=== PATIENT | female | born 1980 | race Two or more races ===

== ENCOUNTER → 2017-11-07 | Outpatient (CLI) | payer OTHER ==
[~2017-11-07] MED LIST: AMOXIL500 MG PO; BACTROBAN OINT22 GM TP; CEFADROXIL500 MG PO; CORTISPORIN-TC10 ML OT; DOLOGESIC CAPSU1 CAP PO; PEPCID40 MG; SYNTHROID75 MCG; [UNRECOGNIZED DRUG - OTHER] MM
== END | disposition home or self-care (01) ==
LOC: SONOGRAMA 12:38
DX: R22.32 Localized swelling, mass and lump, left upper limb (principal)

== ENCOUNTER → 2018-01-25 | Outpatient (CLI) | payer OTHER | END | disposition home or self-care (01) | LOC: SONOGRAMA 08:02 | DX: R10.11 Right upper quadrant pain (principal) ==

== ENCOUNTER 2018-02-24 09:46 | Outpatient (CLI) | payer OTHER ==
[2018-03-18] MEDS ORDERED: SYNTHROID50 MCG (22:42)
== END 2018-02-24 09:55 | disposition home or self-care (01) ==
LOC: RAD 09:46
DX: M25.562 Pain in left knee (principal); M25.572 Pain in left ankle and joints of left foot

== ENCOUNTER → 2018-03-18 | Emergency (ER) | payer OTHER ==
[~2018-03-18] VITALS: Ht 162.6 cm; Wt 85.7 kg
[~2018-03-18] MED LIST changes: +SYNTHROID50 MCG
== END | disposition left against medical advice (07) ==
LOC: ER 22:19
DX: Z53.20 Procedure and treatment not carried out because of patient's decision for unspecified reasons (principal)

== ENCOUNTER 2019-06-26 14:35 | Outpatient (CLI) | payer OTHER | END 2019-06-26 17:00 | disposition home or self-care (01) | LOC: SONOGRAMA 14:35 | DX: R80.8 Other proteinuria (principal) ==

== ENCOUNTER 2020-03-11 12:29 | Emergency (ER) | payer OTHER ==
[~2020-03-11] VITALS: Ht 162.6 cm; Wt 90.3 kg
[2020-03-11] MEDS ORDERED: CIPRO500 MG PO (15:09)
== END 2020-03-11 16:04 | disposition home or self-care (01) ==
LOC: ER 12:29
DX: N39.0 Urinary tract infection, site not specified (principal)

== ENCOUNTER 2020-06-28 15:05 | Emergency (ER) | payer OTHER ==
[~2020-06-28] VITALS: Ht 162.6 cm; Wt 90.7 kg
[~2020-06-28 15:05] MED LIST changes: +CIPRO500 MG PO
== END 2020-06-28 19:18 | disposition home or self-care (01) ==
LOC: ER 15:05
DX: K80.50 Calculus of bile duct without cholangitis or cholecystitis without obstruction (principal)

== ENCOUNTER 2020-07-22 07:17 | Outpatient (CLI) | payer OTHER | END 2020-07-22 08:30 | disposition home or self-care (01) | LOC: NUCLEAR 07:17 | PROVIDERS: ATTEND General Practice | DX: R11.0 Nausea (principal); R10.9 Unspecified abdominal pain | CPT/HCPCS: 78227; A9537 ==

== ENCOUNTER 2020-08-29 21:31 | Emergency (ER) | payer OTHER ==
[~2020-08-29] VITALS: Ht 162.6 cm; Wt 90.7 kg
[2020-08-30] MEDS ORDERED: RECTICARE30 GM TOP (03:15)
[2020-08-30] MEDS ORDERED: SURFAK240 M1 PO (03:15)
== END 2020-08-30 03:28 | disposition home or self-care (01) ==
LOC: ER 21:31
DX: K64.8 Other hemorrhoids (principal); K62.89 Other specified diseases of anus and rectum; Z03.818 Encounter for observation for suspected exposure to other biological agents ruled out

== ENCOUNTER 2020-09-04 07:15 | Outpatient (CLI) | payer OTHER ==
[~2020-09-04 07:15] MED LIST changes: +RECTICARE30 GM TOP; +SURFAK240 M1 PO
== END 2020-09-04 07:35 | disposition home or self-care (01) ==
LOC: LAB 07:15
PROVIDERS: ATTEND Specialist
DX: Z20.828 Contact with and (suspected) exposure to other viral communicable diseases (principal); Z11.59 Encounter for screening for other viral diseases; K81.9 Cholecystitis, unspecified; Z01.811 Encounter for preprocedural respiratory examination; K81.2 Acute cholecystitis with chronic cholecystitis

== ENCOUNTER 2020-09-10 04:50 | Day surgery (SDC) | payer OTHER | END 2020-09-10 16:55 | disposition home or self-care (01) | LOC: CIR.AMB 04:50 | PROVIDERS: ATTEND Specialist | DX: K81.1 Chronic cholecystitis (principal); Z20.828 Contact with and (suspected) exposure to other viral communicable diseases ==

== ENCOUNTER 2020-12-05 00:38 | Emergency (ER) | payer OTHER ==
[~2020-12-05] VITALS: Ht 162.6 cm; Wt 76.7 kg
[2020-12-05] MEDS ORDERED: LEVOTHYROXINE25 MCG (00:49)
== END 2020-12-05 02:22 | disposition home or self-care (01) ==
LOC: ER 00:38
DX: T63.4 Toxic effect of venom of other arthropods (principal); M79.671 Pain in right foot; R51.9 Headache, unspecified; Y92.89 Other specified places as the place of occurrence of the external cause

== ENCOUNTER → 2021-07-12 | Outpatient (CLI) | payer OTHER ==
[~2021-07-12] MED LIST changes: +LEVOTHYROXINE25 MCG
== END | disposition home or self-care (01) ==
LOC: MAMO-SONO 12:41
PROVIDERS: ATTEND General Practice
DX: N64.89 Other specified disorders of breast (principal); Z12.31 Encounter for screening mammogram for malignant neoplasm of breast